=== PATIENT | male | born 1965 | race Hispanic/Latino ===

== ENCOUNTER 2018-01-26 07:51 | Day surgery (SDC) | payer MEDICARE ==
[2018-01-26] MEDS ORDERED: Lactated Ringer's 500 ML IV ONE (08:42)
[2018-01-26] MEDS ORDERED: Propofol 10 mg/ml Inj (20 ML) ONE (10:31)
[2018-01-26 10:55] VITALS: TEMP 97; O2SAT 100
[2018-01-26 11:05] VITALS: BP 104/60; PULSE 63; RESP 15
== END 2018-01-26 14:54 | disposition home or self-care (01) ==
LOC: H.ENDO 07:51
PROVIDERS: ATTEND Internal Medicine Gastroenterology
DX: Z12.11 Encounter for screening for malignant neoplasm of colon (principal); D12.3 Benign neoplasm of transverse colon; K57.30 Diverticulosis of large intestine without perforation or abscess without bleeding
CPT/HCPCS: 45380; 88305; J2001; J2704; J7120